=== PATIENT | female | born 1995 ===

== ENCOUNTER 2016-07-06 20:02 | Emergency (ER) | payer MEDICAID ==
[2016-07-06 20:20] VITALS: BP 117/59; PULSE 75; RESP 18; TEMP 98; O2SAT 98
[2016-07-06 20:52] LABS: RBC URINE 1 /hpf (0-3); URINE BILIRUBIN NEGATIVE (NEGATIVE); URINE BLOOD NEGATIVE (NEGATIVE); URINE COLOR Yellow (YELLOW); URINE GLUCOSE (UA) NORMAL (Normal); URINE KETONE NEGATIVE (NEGATIVE); URINE LEUKOCYTE ESTERASE NEG Leu/uL (Negative); URINE PROTEIN NEGATIVE (NEGATIVE); URINE UROBILINOGEN NORMAL mg/dL (0.2-1.0); WBC URINE < 1 /hpf (0-5)
--- NOTE | 2016-07-06 21:32 | C.PDOC ---
History Of Present Illness Patient is a 20 year old female presenting to the ER with a complaint of hematuria and dysuria x 2 weeks. [facility] Histologist Technologist exam and was screened for all STD. Pt states she was treated for BV but sx persist. Denies nausea, vomiting, diarrhea, or abdominal pain. Time Seen by Provider: 07/06/16 20:26 Chief Complaint (Nursing): Female Genitourinary History Per: Patient History/Exam Limitations: no limitations Onset/Duration Of Symptoms: Hrs Associated Symptoms: Urinary Symptoms (Hematuria, dysuria). denies: Nausea, Vomiting, Diarrhea Past Medical History Reviewed: Historical Data, Nursing Documentation, Vital Signs Vital Signs: Last Vital Signs Temp 98 F 07/06/16 20:17 Pulse 75 07/06/16 20:17 Resp 18 07/06/16 20:17 BP 117/59 L 07/06/16 20:17 Pulse Ox 98 07/06/16 21:35 - Medical History PMH: Asthma Surgical History: No Surg Hx Family History: States: Unknown Family Hx - Social History Hx Alcohol Use: No Hx Substance Use: No - Immunization History Hx Tetanus Toxoid Vaccination: No Hx Influenza Vaccination: No Hx Pneumococcal Vaccination: No Review Of Systems Gastrointestinal: Negative for: Nausea, Vomiting, Abdominal Pain, Diarrhea Genitourinary: Positive for: Dysuria, Hematuria Physical Exam - Physical Exam Appears: Well, Non-toxic Skin: Normal Color, Warm, Dry Head: Atraumatic, Normacephalic Oral Mucosa: Moist Chest: Symmetrical, No Tenderness Cardiovascular: Rhythm Regular, No Murmur Respiratory: Normal Breath Sounds, No Rales, No Rhonchi, No Wheezing Gastrointestinal/Abdominal: Soft, No Tenderness Pelvic: Other (Pt refused , 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 Disposition - Disposition Referrals: [facility] [Outside] Non [facility] Provider, [Primary Care Provider] - Disposition: HOME/ ROUTINE Disposition Time: 21:40 Condition: STABLE Additional Instructions: Please follow up with PMD Take meds as directed Return to ER if worse Prescriptions: Fluconazole [Diflucan] 150 mg PO ONCE #1 tab Instructions: Vaginitis (ED) - Clinical Impression Clinical Impression: Vaginitis - Scribe Statement The provider has reviewed the documentation as recorded by the Scribe Tony Modi All medical record entries made by the Catherineibe were at my direction and personally dictated by me. I have reviewed the chart and agree that the record accurately reflects my personal performance of the history, physical exam, medical decision making, and the department course for this patient. I have also personally directed, reviewed, and agree with the discharge instructions and disposition.
--- NOTE | 2016-07-06 21:36 | C.PDOC ---
Time Seen by Provider: 07/06/16 20:26 Chief Complaint (Nursing): Female Genitourinary Past Medical History Vital Signs: Last Vital Signs Temp 98 F 07/06/16 20:17 Pulse 75 07/06/16 20:17 Resp 18 07/06/16 20:17 BP 117/59 L 07/06/16 20:17 Pulse Ox 98 07/06/16 20:17 - Medical History PMH: Asthma - Social History Hx Alcohol Use: No Hx Substance Use: No - Immunization History Hx Tetanus Toxoid Vaccination: No Hx Influenza Vaccination: No Hx Pneumococcal Vaccination: No ED Course And Treatment O2 Sat by Pulse Oximetry: 98 Disposition Counseled Patient/Family Regarding: Diagnosis, Need For Followup, Rx Given - Disposition Referrals: Non [facility] Provider, [Primary Care Provider] - [facility] [Outside] Disposition: HOME/ ROUTINE Disposition Time: 21:36 Condition: STABLE Additional Instructions: Please follow up with PMD Take meds as directed Return to ER if worse Prescriptions: Fluconazole [Diflucan] 150 mg PO ONCE #1 tab Instructions: Vaginitis (ED) - Clinical Impression Clinical Impression: Vaginitis
== END 2016-07-06 21:46 | disposition home or self-care (01) ==
LOC: C.ER 20:02 → SUPCPDRO 20:02 → C.ER 21:46
DX: B37.3 Candidiasis of vulva and vagina (principal)

== ENCOUNTER 2016-07-11 00:57 | Emergency (ER) | payer MEDICAID, OTHER ==
[2016-07-11 01:16] VITALS: RESP 16; TEMP 98.3
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
[2016-07-11 02:54] VITALS: BP 117/60; PULSE 76
[2016-07-11 04:50] VITALS: O2SAT 99
== END 2016-07-11 02:54 | disposition home or self-care (01) ==
LOC: C.ER 00:57
DX: M54.2 Cervicalgia (principal); V89.2XXA Person injured in unspecified motor-vehicle accident, traffic, initial encounter

== ENCOUNTER 2016-08-03 19:32 | Inpatient (IN) | payer MEDICAID, OTHER ==
[2016-08-03 19:51] VITALS: RESP 20
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
[2016-08-03 20:29] LABS: BASO # 0.1 K/uL (0.0-0.2); BASO % 0.5 % (0.0-2.0); EOS # 0.2 K/uL (0.0-0.7); EOS % 1.4 % (0.0-4.0); HEMATOCRIT 34.9 % (34.0-47.0); LYMPH # 3.7 K/uL (1.0-4.3); LYMPH % 26.7 % (20.0-40.0); MEAN CELL VOLUME 83.8 fL (81.0-99.0); MEAN CORPUSCULAR HEMOGLOBIN 26.9 pg (27.0-31.0); MEAN CORPUSCULAR HGB CONC 32.1 g/dL (33.0-37.0); MEAN PLATELET VOLUME 8.7 fL (7.2-11.7); MONO # 0.7 K/uL (0.0-0.8); MONO % 5.1 % (0.0-10.0); RED CELL DISTRIBUTION WIDTH 15.5 % (11.5-14.5); WHITE BLOOD COUNT 13.9 K/uL (4.8-10.8)
[2016-08-03 20:36] LABS: RBC URINE 2 /hpf (0-3); URINE BACTERIA RARE (<OCC); URINE BILIRUBIN NEGATIVE (NEGATIVE); URINE BLOOD NEGATIVE (NEGATIVE); URINE COLOR Yellow (YELLOW); URINE GLUCOSE (UA) NORMAL (Normal); URINE KETONE NEGATIVE (NEGATIVE); URINE LEUKOCYTE ESTERASE TRACE Leu/uL (Negative); URINE PROTEIN NEGATIVE (NEGATIVE); URINE UROBILINOGEN NORMAL mg/dL (0.2-1.0); WBC URINE 6 /hpf (0-5)
[2016-08-03 20:39] LABS: CHLORIDE 102 mmol/L (98-107)
[2016-08-03 20:40] LABS: POTASSIUM 3.6 mmol/L (3.6-5.2); SODIUM 136 mmol/L (132-148)
[2016-08-03 20:42] LABS: ALB/GLOB RATIO 1.3 (1.0-2.1); AST/SGOT 14 U/L (14-36); BILIRUBIN,TOTAL 0.5 mg/dL (0.2-1.3); CARBON DIOXIDE 25 mmol/L (22-30); GFR AFRICAN-AMERICAN > 60; TOTAL PROTEIN 7.2 g/dL (6.3-8.3)
[2016-08-03 20:43] LABS: ALKALINE PHOSPHATASE 46 U/L (38-126); ALT/SGPT 11 U/L (9-52); BLOOD UREA NITROGEN 9 mg/dL (7-17); CALCIUM 8.6 mg/dl (8.6-10.4); GLUCOSE,RANDOM 79 mg/dL (65-105)
[2016-08-03] MEDS ORDERED: Sodium Chloride 0.9% 1,000 ML IV SCH (23:45)
[2016-08-03] MEDS ORDERED: Alum-Mag Hydrox-Simethicone Susp (30 mL) PO STA (23:55)
[2016-08-04] MEDS ORDERED: Piperacill/Tazo 3.375gm in Dex 3.375 GM/50 ML BAG IVPB STA ×2 (02:24→06:04)
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
[2016-08-04] MEDS ORDERED: Dextrose 5%/0.45% NS 1,000 ML IV SCH (05:00)
--- NOTE | 2016-08-04 08:50 | CP.PCM.PN ---
Subjective - Date & Time of Evaluation Date of Evaluation: 08/04/16 Time of Evaluation: 08:30 - Subjective Subjective: Hospitalist Progress Note (Patient was seen and examined at 8:30 AM 08/04/16 801B ) 21 year old female who was admitted earlier this morning by overnight Hospitalist for evaluation of abdominal pain that has been present for 1 day. It was described as intermittent, severe cramping to dull pain, felt diffusely in the abdomen. Patient reveals the following at the time of my exam: History of 3 miscarriages (1 within frist trimester and the other in 2nd trimester, she can not remember the details of the the 3rd) History of PE S/P Right Femur Fracture in December 2015 diagnosed at [facility] in [facility]. Patient stated that she was told that the PE was likely secondary to the Right Femur Fracture. She was discharged from [facility] on Warfarin and Lovenox but patient stated that she never followed up with anyone for this (she states that an unspecified outpatient doctor could not get records from [facility] fast enough and therefore she just "gave up") She does not have a PMD She does not have an ROCK SPLITTER following her for her current 7 week ROS: Abdominal pain is currently not present: will feel pressure only when doctor's are pushing down on it Nausea: Mild but NO vomiting Cough that is dry that comes and goes NO other complaints upon FULL ROS PE: HEENT: NCA, EOMI, PERRLA, NO cervical/supraclavicular/submandibular lymphadenopathy, NO pharyngeal erythema/exudate, NO thyromegaly Cardio: NS1 and NS2, NO M/R/G Respiratory: CTA B/L, NO R/R/W GI: BSx4, Soft, NO guarding/rebound tenderness, (+) Tenderness described as increased pressure when palpating all 4 quadrants, (+) Psoas Sign which she described as "tearing" pain in the RLQ when trying to lift right leg back onto bed against my resistance (please note that the patient did not appear to be distress with the manuever) Ext: Pulses are strong and equal, NO edema, Capillary Refill is 2 seconds Assessment and Plan: 1). Abdominal Pain Could this be secondary to Appendicitis? U/S Abdomen could not visualize the Appendix F/U MRI Abdomen 2). Hx of PE as per patient Please see details above F/U Protein C, Protein S, Antithrombin III, Antiphospholipid Ab, Anticardiolipin Ab, Factor V Leiden F/U ISABELLA She will need further evaluation and follow up with Hematology for this issue as an outpatient through [facility] 3). < 8 weeks F/U evaluation by Healthcare Liaison: consulted was placed due to patient not being followed by any Healthcare Liaison as well as because of prior multiple miscarriages Disposition: If the MRI Abdomen is unremarkable and patient tolerating diet after performance, then ok to discharge patient in the morning 08/05/16 with appropriate information being provided to patient for follow up with the [facility] so that they can coordinate this patient care for her and for follow up with anticoagulation lab work and with Hematology (should this work up be abnormal). William Moyer D.O. Objective - Vital Signs/Intake and Output Vital Signs (last 24 hours): Temp Pulse Resp BP Pulse Ox 98.4 F 77 20 90/55 L 96 08/04/16 08:23 08/04/16 08:23 08/04/16 08:23 08/04/16 08:23 08/04/16 08:23 - Medications Medications: Current Medications Dextrose/Sodium Chloride (Dextrose 5%/0.45% Ns 1000 Ml) 1,000 mls @ 100 mls/hr IV .Q10H [facility] Last Admin: 08/04/16 05:00 Dose: 100 mls/hr Folic Acid 1 mg/ Sodium (Chloride) 100.2 mls @ 60 mls/hr IV DAILY [facility] Pantoprazole Sodium (Protonix Inj) 40 mg IVP Q12H [facility] Last Admin: 08/04/16 05:59 Dose: 40 mg
--- NOTE | 2016-08-04 08:55 | US ---
Pelvic ultrasound History: . Comparison: None available. Technique: Real-time sonography was performed through the pelvis utilizing transabdominal and transvaginal techniques. Findings: Uterus: 10.4 x 6.0 x 7.6 centimeters. Heterogeneous echotexture. Retroverted. Cervix measures 4.3 centimeters. Intrauterine . Intrauterine gestational sac measures 2.5 centimeters corresponding to a gestational age of 7 weeks and 1 day. Yolk sac measures 3.3 millimeters. Independent Hill-rump length measures 1.3 centimeters corresponding to a gestational age of 7 weeks and 4 days. heart rate of 150 beats per minute. No free fluid in the pelvic cul-de-sac. Right ovary: 3.6 x 2.1 x 2.9 centimeters. Normal flow. Complex heterogeneous corpus luteal cyst measuring 2.2 x 1.5 x 1.9 centimeters. Simple hypoechoic cyst measuring 2.4 x 1.8 x 1.6 centimeters. Left ovary: 2.5 x 1.9 x 1.5 centimeters. Normal flow. Small amount of subchorionic hemorrhage adjacent to the gestational sac measuring 0.8 x 0.5 x 0.8 centimeters. Impression: Intrauterine corresponding to a gestational age of approximately 7 weeks and 4 days by crown-rump length of 1.3 centimeters. Small amount of subchorionic hemorrhage measuring up to 8 x 5 x 8 millimeters. heart rate of 150 beats per minute. Right ovarian corpus luteal cyst measuring 2.2 centimeters. Additional simple right ovarian cyst measuring 2.4 centimeters. Limited 1st trimester ultrasound for viability purposes only. Continued interval followup with serial ultrasound, serial HCG levels, and gynecological consultation would be helpful if clinically indicated. These findings were preliminarily reported at 11:59 p.m. on 08/03/[address] Vladimir Townsend from [facility].
--- NOTE | 2016-08-04 08:57 | US ---
Limited right lower quadrant abdominal ultrasound History: Pelvic pain. Comparison: None available. Technique: Real-time sonography was performed through the right lower quadrant of the abdomen. Findings: Appendix not well visualized. No free fluid is present. Normal bowel loops with peristalsis noted in the right lower quadrant. Impression: Appendix not well visualized. Limited evaluation. If there is persistent clinical concern for acute appendicitis, consider further evaluation with CT scan. These findings were preliminarily reported at 11:54 p.m. on 08/03/[address] Vladimir Marie from [facility].
--- NOTE | 2016-08-04 09:06 | CP.PCM.CON ---
History of Present Illness - History of Present Illness History of Present Illness: Surgery: Dr. Jung CC: Abd pain HPI: 21F 7 weeks , LMP 06/06/16 w. PMH significant for asthma, presents to ED w. abd pain starting yesterday. Pain is intermittent. Alleviated w. rest. Aggravated by food, no correlation to greasy intake. Pain is associated w. nausea and vomiting x 4, w. streaks of blood. Pt denies diarrhea. No OSMAN, + dizziness, no CP/palpitations, intermittent SOB, no cough, no vaginal bleeding or discharge, no hematuria/dysuria. PMH: Asthma, PE PSH: ORIF R femur Meds: Albuterol ALL: cranberry, egg, seafood Social: No ETOH/tobacco/drugs Fhx: non-contributory Review of Systems - Review of Systems All systems: reviewed and no additional remarkable complaints except (HPI) Past Patient History - Infectious Disease Hx of Infectious Diseases: None - Past Medical History & Family History Past Medical History?: Yes - Past Social History Smoking Status: Light Smoker < 10 Cigarettes Daily - CARDIAC Hx Cardiac Disorders: No - PULMONARY Hx Asthma: Yes Hx Pulmonary Embolism: Yes - NEUROLOGICAL Hx Neurological Disorder: No - HEENT Hx HEENT Problems: No - RENAL Hx Chronic Kidney Disease: No - ENDOCRINE/METABOLIC Hx Endocrine Disorders: No - HEMATOLOGICAL/ONCOLOGICAL Hx Blood Disorders: No - INTEGUMENTARY Hx Dermatological Problems: No - MUSCULOSKELETAL/RHEUMATOLOGICAL Hx Fractures: Yes (rt. femur) - GASTROINTESTINAL Hx Gastrointestinal Disorders: No - GENITOURINARY/GYNECOLOGICAL Hx Genitourinary Disorders: No - PSYCHIATRIC Hx Substance Use: No - SURGICAL HISTORY Hx Surgeries: Yes Hx Orthopedic Surgery: Yes (right femur evaristo) - ANESTHESIA Hx Anesthesia: Yes Hx Anesthesia Reactions: No Hx Malignant Hyperthermia: No Meds Allergies/Adverse Reactions: Allergies Allergy/AdvReac Type Severity Reaction Status Date / Time cranberry AdvReac Severe ANGIOEDEMA Verified 08/03/16 19:52 EGG AdvReac Severe ANGIOEDEMA Verified 08/03/16 19:52 seafood AdvReac Severe ANGIOEDEMA Uncoded 08/03/16 19:52 - Medications Medications: Current Medications Dextrose/Sodium Chloride (Dextrose 5%/0.45% Ns 1000 Ml) 1,000 mls @ 100 mls/hr IV .Q10H [facility] Last Admin: 08/04/16 05:00 Dose: 100 mls/hr Folic Acid 1 mg/ Sodium (Chloride) 100.2 mls @ 60 mls/hr IV DAILY [facility] Pantoprazole Sodium (Protonix Inj) 40 mg IVP Q12H [facility] Last Admin: 08/04/16 05:59 Dose: 40 mg Physical Exam - Constitutional Appears: Non-toxic, No Acute Distress - Head Exam Head Exam: ATRAUMATIC, NORMOCEPHALIC - Eye Exam Eye Exam: EOMI. absent: Scleral icterus - ENT Exam ENT Exam: Mucous Membranes Moist - Neck Exam Neck exam: Positive for: Full Rom - Respiratory Exam Respiratory Exam: NORMAL BREATHING PATTERN. absent: Accessory Muscle Use, Respiratory Distress - GI/Abdominal Exam GI & Abdominal Exam: Rebound (+Rovsing), Soft, Tenderness (RLQ). absent: Distended, Firm, Guarding, Rigid Additional comments: (-) Obturator/psoas - Extremities Exam Extremities exam: Negative for: calf tenderness, pedal edema - Neurological Exam Neurological exam: Alert, Oriented x3 Results - Vital Signs Recent Vital Signs: Last Vital Signs Temp 98.4 F 08/04/16 08:23 Pulse 77 08/04/16 08:23 Resp 20 08/04/16 08:23 BP 90/55 L 08/04/16 08:23 Pulse Ox 96 08/04/16 08:23 - Labs Result Diagrams: 08/03/16 20:24 08/03/16 20:24 Assessment & Plan - Assessment and Plan (Free Text) Assessment: 21F w. abd pain, R/O appendicitis -U/S reviewed, non-visualized appendix -will order MRI -NPO -IVF -abx -pain meds -will too attending Zemaitis PGY2
[2016-08-04] MEDS ORDERED: Piperacillin/Tazobact 3.375 GM in Sodium Chloride 100 ML IVPB SCH ×3 (09:15→19:30)
--- NOTE | 2016-08-04 11:21 | MRI ---
PROCEDURE: MRI pelvis HISTORY: r/o appendicitis, 7 weeks COMPARISON: Not available TECHNIQUE: Multi sequence, multiplanar imaging of the pelvis and lower abdomen was performed without intravenous gadolinium administration. FINDINGS: The appendix is not definitely identified. The cecum is well visualized. There is no pericecal mass, fluid collection or inflammatory change noted. There is a 2 cm cyst in the right ovary corresponding to a finding on sonographic examination of the same date. The known intrauterine gestational sac is identified. There is no evidence of ascites. The urinary bladder is unremarkable. There is no pelvic lymphadenopathy appreciated. The marrow signal of the visualized osseous structures is within normal limits. IMPRESSION: No evidence of acute appendicitis. 2 cm right ovarian cyst. Intrauterine gestational sac identified.
[2016-08-04 11:55] LABS: BASO % 0.3 % (0.0-2.0); EOS # 0.1 K/uL (0.0-0.7); EOS % 1.3 % (0.0-4.0); HEMATOCRIT 33.7 % (34.0-47.0); LYMPH # 2.4 K/uL (1.0-4.3); LYMPH % 22.1 % (20.0-40.0); MEAN CELL VOLUME 84.7 fL (81.0-99.0); MEAN CORPUSCULAR HEMOGLOBIN 27.7 pg (27.0-31.0); MEAN CORPUSCULAR HGB CONC 32.7 g/dL (33.0-37.0); MEAN PLATELET VOLUME 8.8 fL (7.2-11.7); MONO # 0.5 K/uL (0.0-0.8); MONO % 4.7 % (0.0-10.0); RED CELL DISTRIBUTION WIDTH 15.3 % (11.5-14.5); WHITE BLOOD COUNT 10.8 K/uL (4.8-10.8)
[2016-08-04 12:08] VITALS: O2SAT 99
[2016-08-04 12:11] LABS: CHLORIDE 103 mmol/L (98-107); SODIUM 135 mmol/L (132-148)
[2016-08-04 12:12] LABS: POTASSIUM 3.8 mmol/L (3.6-5.2)
[2016-08-04 12:14] LABS: ALB/GLOB RATIO 1.2 (1.0-2.1); ALKALINE PHOSPHATASE 45 U/L (38-126); AST/SGOT 12 U/L (14-36); BILIRUBIN,TOTAL 0.6 mg/dL (0.2-1.3); BLOOD UREA NITROGEN 4 mg/dL (7-17); CARBON DIOXIDE 22 mmol/L (22-30); GFR AFRICAN-AMERICAN > 60; GLUCOSE,RANDOM 73 mg/dL (65-105); TOTAL PROTEIN 5.9 g/dL (6.3-8.3)
[2016-08-04 12:15] LABS: ALT/SGPT 18 U/L (9-52); CALCIUM 8.6 mg/dl (8.6-10.4)
--- NOTE | 2016-08-04 12:19 | CP.PCM.CON ---
<Martínez Pascual - Last Filed: 08/04/16 13:54> History of Present Illness - History of Present Illness History of Present Illness: PIGMENT PUSHER Consultation Note Dr. Savage CC: Abdominal Pain x 2 days HPI: This is a 21 year old female with a PMH notable for asthma presenting for PIGMENT PUSHER evaluation at 7.4 weeks gestation of 2 days of diffuse abdominal pain. The patient reports that she may have had an allergic reaction to something that she ate. The patient reports that around the onset of her symptoms, she noted a rash about her face and chest. The rash has since resolved, but the abdominal pain has not. The patient tried tylenol for the pain without relief. The patient denies increased pain with PO intake, walking and straining. The patient reports nausea without emetic episodes. The patient denies fever, chills, headache, chest pain, SOB, cough, changes in bowel /bladder, and extremity paresthesias. OB Hx: FDLMP: 06/06/16 EGA: 7weeks and 4 days per US preformed on this admission NILES: 03/19/17 per US on this admission Last PAP: 2011- (+) for HPV STI: Chlamydia x 2 (treated with PO abx) Menarche: 9 years old Menstrual Cycle: 26 days, 5 day menstruation Last Sexual activity 1 week ago, no use of condoms for STI prevention History: : 1- spontaneous 13 weeks with D&C to follow : 2- 6lb 1oz Baby [facility] at [facility] via spontaneous vaginal delivery, full term, no complications : 3- Elective : 4- Elective : 5- spontaneous 10 weeks with D&C to follow : 6- spontaneous 5-6 weeks : 7- current 7wks 4 days PMH: Asthma Meds: Albuterol Inh as needed Surg: Right Femur ORIF 2016, D&C x 2 Allergy: Eggs (anaphylaxis), Seafood (anaphylaxis), Cranberries (reaction unknown) SOcial: Former smoker (did not smoke during any ), denies alcohol and illicit drugs Fam: Paternal: ESRD, cataracts, HTN, DM/ Maternal: DM, Breast/Skin/Cervical ( Aunts and Grandmother) Review of Systems - Review of Systems All systems: reviewed and no additional remarkable complaints except - Constitutional Constitutional: absent: Chills, Fatigue, Fever - EENT Eyes: absent: Blurred Vision, Change in Vision Ears: absent: Ear Pain, Tinnitus Nose/Mouth/Throat: absent: Nose Pain, Facial Pain, Neck Pain - Cardiovascular Cardiovascular: absent: Chest Pain, Lightheadedness, Palpitations, Syncope - Respiratory Respiratory: absent: Cough, Dyspnea, Dyspnea on Exertion - Gastrointestinal Gastrointestinal: Abdominal Pain, Cramping, Nausea. absent: Constipation, Diarrhea, Vomiting - Genitourinary Genitourinary: absent: Change in Urinary Stream, Difficulty Urinating - Musculoskeletal Musculoskeletal: absent: Arthralgias, Numbness, Stiffness, Tingling - Integumentary Integumentary: absent: Lesions, Rash, Wounds - Neurological Neurological: absent: Paresthesias, Sensory Deficit, Syncope, Tingling, Tremor, Vertigo, Weakness - Endocrine Endocrine: absent: Cold Intolorance, Heat Intolorance, Polydipsia, Polyphagia Past Patient History - Infectious Disease Hx of Infectious Diseases: None - Past Medical History & Family History Past Medical History?: Yes - Past Social History Smoking Status: Former Smoker Alcohol: None Drugs: Denies Home Situation {Lives}: With Family - CARDIAC Hx Cardiac Disorders: No - PULMONARY Hx Asthma: Yes Hx Pulmonary Embolism: Yes - NEUROLOGICAL Hx Neurological Disorder: No - HEENT Hx HEENT Problems: No - RENAL Hx Chronic Kidney Disease: No - ENDOCRINE/METABOLIC Hx Endocrine Disorders: No - HEMATOLOGICAL/ONCOLOGICAL Hx Blood Disorders: No - INTEGUMENTARY Hx Dermatological Problems: No - MUSCULOSKELETAL/RHEUMATOLOGICAL Hx Fractures: Yes (rt. femur) - GASTROINTESTINAL Hx Gastrointestinal Disorders: No - GENITOURINARY/GYNECOLOGICAL Hx Genitourinary Disorders: No - PSYCHIATRIC Hx Substance Use: No - SURGICAL HISTORY Hx Surgeries: Yes Hx Orthopedic Surgery: Yes (right femur evaristo) - ANESTHESIA Hx Anesthesia: Yes Hx Anesthesia Reactions: No Hx Malignant Hyperthermia: No Meds Allergies/Adverse Reactions: Allergies Allergy/AdvReac Type Severity Reaction Status Date / Time cranberry AdvReac Severe ANGIOEDEMA Verified 08/03/16 19:52 EGG AdvReac Severe ANGIOEDEMA Verified 08/03/16 19:52 seafood AdvReac Severe ANGIOEDEMA Uncoded 08/03/16 19:52 - Medications Medications: Current Medications Acetaminophen (Tylenol 325mg Tab) 650 mg PO Q6 PRN PRN Reason: Pain, moderate (4-7) Dextrose/Sodium Chloride (Dextrose 5%/0.45% Ns 1000 Ml) 1,000 mls @ 100 mls/hr IV .Q10H [facility] Last Admin: 08/04/16 05:00 Dose: 100 mls/hr Folic Acid 1 mg/ Sodium (Chloride) 100.2 mls @ 60 mls/hr IV DAILY [facility] Last Admin: 08/04/16 11:28 Dose: 60 mls/hr Piperacillin Sod/Tazobactam (Sod 3.375 gm/ Sodium Chloride) 100 mls @ 200 mls/ hr IVPB Q8H [facility] Ondansetron HCl (Zofran Inj) 4 mg IVP Q4 PRN PRN Reason: Nausea/Vomiting Pantoprazole Sodium (Protonix Inj) 40 mg IVP Q12H [facility] Last Admin: 08/04/16 05:59 Dose: 40 mg Physical Exam - Constitutional Appears: Well, No Acute Distress - Head Exam Head Exam: ATRAUMATIC, NORMAL INSPECTION, NORMOCEPHALIC - Eye Exam Eye Exam: EOMI, Normal appearance Pupil Exam: NORMAL ACCOMODATION - ENT Exam ENT Exam: Mucous Membranes Moist, Normal Exam. absent: Mucous Membranes Dry - Neck Exam Neck exam: Positive for: Full Rom, Normal Inspection. Negative for: Lymphadenopathy, Tenderness - Respiratory Exam Respiratory Exam: Clear to Auscultation Bilateral, NORMAL BREATHING PATTERN. absent: Rales, Rhonchi, Wheezes, Stridor - Cardiovascular Exam Cardiovascular Exam: REGULAR RHYTHM, RRR, +S1, +S2. absent: Diastolic murmur, Systolic Murmur - GI/Abdominal Exam GI & Abdominal Exam: Normal Bowel Sounds, Soft, Tenderness (mild B/L Lower Quadrants and Epigastric ). absent: Diminished Bowel Sounds, Distended, Firm, Guarding, Rebound, Rigid - Extremities Exam Extremities exam: Positive for: normal capillary refill, normal inspection, pedal pulses present - Neurological Exam Neurological exam: Alert, CN II-XII Intact, Oriented x3 - Skin Skin Exam: Dry, Intact, Normal Color, Warm Results - Vital Signs Recent Vital Signs: Last Vital Signs Temp 98.4 F 08/04/16 08:23 Pulse 77 08/04/16 08:23 Resp 20 08/04/16 08:23 BP 90/55 L 08/04/16 08:23 Pulse Ox 96 08/04/16 08:23 - Labs Result Diagrams: 08/04/16 11:51 08/04/16 11:51 Assessment & Plan (1) Abdominal pain during Assessment and Plan: The patient will require continued care and follow up with PIGMENT PUSHER service as an outpatient. At this time, no acute obstetric or gynecological intervention is planned. Prior spontaneous abortions unlikely 2/2 to antiphospholipid syndrome due to Aissatou Criteria Aissatou Criteria: Unlikely (positive if at least 1 clinical AND 1 laboratory finding are confirmed) : Clinical- No Criteria Met - Vascular Thrombosis- None - Related Morbidity- None 1.) Unexplained of a morphologically normal fetus confirmed by U/S- None 2.) One or more premature births of a morphologically normal before the 34th week of gestation 2/2 to eclampsis/severe preeclampsia/ placental insufficiency- None 3.) 3 or more consecutive spontaneous abortions before the 10th week ( with anatomic and genetic factors excluded)- None : Laboratory- Pending Lab Work 1.) Lupus Anticoagulant 2.) Anti Cardiolipin 3.) Anti [id number] Urine GC ordered vitamins ordered Work-up for antiphospholipid syndrome and coagulopathy ordered by primary team patient has negative MRI for Appendicitis nausea- zofran 4mg IV q4 prn pain control- tylenol 650mg po q6 prn abx- zosyn 3.375mg IV q8 08/03/16 OB US- Intrauterine corresponding to a gestational age of approximately 7 weeks and 4 days by crown-rump length of 1.3 centimeters. Small amount of subchorionic hemorrhage measuring up to 8 x 5 x 8 millimeters. heart rate of 150 beats per minute. Right ovarian corpus luteal cyst measuring 2.2 centimeters. Additional simple right ovarian cyst measuring 2.4 centimeters. Limited 1st trimester ultrasound for viability purposes only. Continued interval followup with serial ultrasound, serial HCG levels, and gynecological consultation would be helpful if clinically indicated. Case Discussed with Dr. Hussein Pascual PGY1 Status: Acute - Date & Time Date: 08/04/16 Time: 13:52 <Kasie Savage - Last Filed: 08/04/16 16:22> Meds - Medications Medications: Current Medications Acetaminophen (Tylenol 325mg Tab) 650 mg PO Q6 PRN PRN Reason: Pain, moderate (4-7) Last Admin: 08/04/16 15:09 Dose: 650 mg Dextrose/Sodium Chloride (Dextrose 5%/0.45% Ns 1000 Ml) 1,000 mls @ 100 mls/hr IV .Q10H [facility] Last Admin: 08/04/16 05:00 Dose: 100 mls/hr Folic Acid 1 mg/ Sodium (Chloride) 100.2 mls @ 60 mls/hr IV DAILY [facility] Last Admin: 08/04/16 11:28 Dose: 60 mls/hr Piperacillin Sod/Tazobactam (Sod 3.375 gm/ Sodium Chloride) 100 mls @ 200 mls/ hr IVPB Q8H [facility] Ondansetron HCl (Zofran Inj) 4 mg IVP Q4 PRN PRN Reason: Nausea/Vomiting Last Admin: 08/04/16 14:00 Dose: 4 mg Pantoprazole Sodium (Protonix Inj) 40 mg IVP Q12H [facility] Last Admin: 08/04/16 05:59 Dose: 40 mg Multivit/Folic Acid/Iron () 1 tab PO DAILY [facility] Results - Vital Signs Recent Vital Signs: Last Vital Signs Temp 98.4 F 08/04/16 08:23 Pulse 77 08/04/16 08:23 Resp 20 08/04/16 08:23 BP 90/55 L 08/04/16 08:23 Pulse Ox 99 08/04/16 12:08 - Labs Result Diagrams: 08/04/16 11:51 08/04/16 11:51 Labs: Laboratory Results - last 24 hr 08/04/16 08/04/16 08/04/16 11:51 11:51 11:51 WBC 10.8 RBC 3.98 Hgb 11.0 Hct 33.7 L MCV 84.7 MCH 27.7 MCHC 32.7 L RDW 15.3 H Plt Count 310 MPV 8.8 Neut % (Auto) 71.6 Lymph % (Auto) 22.1 [place] % (Auto) 4.7 Eos % (Auto) 1.3 Baso % (Auto) 0.3 Neut # 7.8 H Lymph # 2.4 [place] # 0.5 Eos # 0.1 Baso # 0.0 PT 11.6 INR 1.0 APTT 28 Sodium 135 Potassium 3.8 Chloride 103 Carbon Dioxide 22 Anion Gap 14 BUN 4 L Creatinine 0.5 L Est GFR ( Amer) > 60 Est GFR (Non-Af Amer) > 60 Random Glucose 73 Calcium 8.6 Total Bilirubin 0.6 AST 12 L ALT 18 Alkaline Phosphatase 45 Total Protein 5.9 L Albumin 3.2 L Globulin 2.7 Albumin/Globulin Ratio 1.2 Attending/Attestation - Attestation I have personally seen and examined this patient.: Yes I have fully participated in the care of the patient.: Yes I have reviewed all pertinent clinical information: Yes Notes (Text): 08/04/16 16:12 Patient was seen after Dr. Pascual's assessment utilizing the Aissatou scale re: likelihood of APS. At the time of my assessment, patient clarified her obstetric history, most noteworthy for 12/2015 - in this , patient was started on warfarin, then switched to lovenox because of the , and based on being diagnosed with "clot in my leg". Patient had a miscarriage with this ; subseqently lost her insurance, and has had no follow up re: thromboembolic phenomena. It was discussed with patient, upon discharge, it is important to obtain obstetric care so that a diagnosis can be confirmed/ reaffirmed, if applicable, and the proper consultation with High Risk clinician obtained and anticoagulant therapy be initiated, if indicated. Patient expressed an understanding and agrees. Patient is otherwise clinically stable. No obstetric intervention indicated at this time. Will sign off at this time. Thank you for the pleasure of this consultation
[2016-08-04 17:15] VITALS: BP 99/58; PULSE 69; TEMP 98.5
[2016-08-05 08:25] LABS: INR 1.1
[2016-08-05] MEDS ORDERED: Prenatal Multivit/Folic Acid/Iron Tab PO SCH (10:00)
--- NOTE | 2016-08-05 20:09 | CP.PCM.PCO ---
Physician Communication Note - Physician Communication Note Physician Communication Note: Written discharge summary in paper chart secondary to [employer] outage
[2016-08-06 08:17] LABS: CARDIOLIPIN AB (IGA) <11 APL (<=11)
== END 2016-08-05 10:45 | disposition home or self-care (01) | DRG 886 ==
LOC: C.ER 19:32 → C.5T 23:59 → C.ER 08-04 02:23
PROVIDERS: ADMIT Internal Medicine; ATTEND Internal Medicine
DX: O26.891 Other specified pregnancy related conditions, first trimester (principal); K29.70 Gastritis, unspecified, without bleeding; Z3A.01 Less than 8 weeks gestation of pregnancy

== ENCOUNTER 2016-11-02 23:38 | Emergency (ER) | payer MEDICAID ==
[2016-11-02 23:46] VITALS: BP 95/62; PULSE 93; RESP 18; TEMP 98.8; O2SAT 96
--- NOTE | 2016-11-03 00:16 | C.PDOC ---
History Of Present Illness A 21 y/o F who is 23 weeks , presents to the ER c/o periumbilical cramping since last week. Patient has prior normal US done. Denies dysuria, hematuria, fever, chills, or any other complaints. Patient wants a monitoring. Time Seen by Provider: 11/03/16 00:04 Chief Complaint (Nursing): Abdominal Pain History Per: Patient History/Exam Limitations: no limitations Onset/Duration Of Symptoms: Days Current Symptoms Are (Timing): Still Present Severity: Mild Location Of Pain/Discomfort: Periumbilical Radiation Of Pain To:: None Quality Of Discomfort: Cramping Associated Symptoms: denies: Fever, Chills Recent travel outside of the [place]: No Additional History Per: Patient Past Medical History Reviewed: Historical Data, Nursing Documentation, Vital Signs Vital Signs: Last Vital Signs Temp 98.8 F 11/02/16 23:42 Pulse 93 H 11/02/16 23:42 Resp 18 11/02/16 23:42 BP 95/62 L 11/02/16 23:42 Pulse Ox 96 11/03/16 01:08 - Medical History PMH: Asthma, Fractures (rt. femur), Pulmonary Embolism Denies: Chronic Kidney Disease Family History: States: Unknown Family Hx - Social History Hx Alcohol Use: No Hx Substance Use: No - Immunization History Hx Tetanus Toxoid Vaccination: No Hx Influenza Vaccination: No Hx Pneumococcal Vaccination: No Review Of Systems Except As Marked, All Systems Reviewed And Found Negative. Constitutional: Negative for: Fever, Chills Gastrointestinal: Positive for: Abdominal Pain (cramping) Genitourinary: Negative for: Dysuria, Hematuria Physical Exam - Physical Exam Appears: Non-toxic, No Acute Distress, Other (Petite, ) Skin: Warm, Dry Head: Atraumatic, Normacephalic Cardiovascular: Rhythm Regular Respiratory: Normal Breath Sounds, No Rales, No Rhonchi, No Wheezing Gastrointestinal/Abdominal: Soft, No Tenderness (No periumblical discomfort), No Other ((-) Morales's signs or McBurney's point) Back: Normal Inspection, No CVA Tenderness Neurological/Psych: Oriented x3, Normal Speech, Normal Cognition ED Course And Treatment - Laboratory Results Lab Interpretation: Normal (UA neg.) O2 Sat by Pulse Oximetry: 96 (RA) Pulse Ox Interpretation: Normal Medical Decision Making Medical Decision Making: Impression: A 21 y/o F who is 23 weeks , presents to the ER c/o periumbilical cramping since last week. Plans: * UA * Reassess early 23 weeks, no UTI prior normal preg US's. no emergency repeat US indicated. ok to OB for monitoring Disposition Doctor Will See Patient In The: Office Counseled Patient/Family Regarding: Studies Performed, Diagnosis - Disposition Referrals: Non [facility] Provider, [Primary Care Provider] - Disposition: HOSPITALIZED Disposition Time: 00:57 Condition: GOOD Additional Instructions: Medically Cleared for OB-ED Obs, approx 23 weeks. Urinalysis normal Instructions: Abdominal Pain in (ED) Forms: [employer] (Persian) - Clinical Impression Clinical Impression: at early stage - Scribe Statement The provider has reviewed the documentation as recorded by the Scribe Amilcar delarosa All medical record entries made by the Scribe were at my direction and personally dictated by me. I have reviewed the chart and agree that the record accurately reflects my personal performance of the history, physical exam, medical decision making, and the department course for this patient. I have also personally directed, reviewed, and agree with the discharge instructions and disposition.
[2016-11-03 00:38] LABS: RBC URINE 2 /hpf (0-3); URINE BILIRUBIN NEGATIVE (NEGATIVE); URINE BLOOD NEGATIVE (NEGATIVE); URINE COLOR Yellow (YELLOW); URINE GLUCOSE (UA) NORMAL (Normal); URINE KETONE NEGATIVE (NEGATIVE); URINE LEUKOCYTE ESTERASE NEG Leu/uL (Negative); URINE PROTEIN NEGATIVE (NEGATIVE); WBC URINE 5 /hpf (0-5)
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
== END 2016-11-03 02:25 | disposition short-term general hospital (02) ==
LOC: SUPCPDRO 23:38 → C.ER 23:38 → C.EROB 23:38
DX: O26.892 Other specified pregnancy related conditions, second trimester (principal); R10.33 Periumbilical pain; Z3A.23 23 weeks gestation of pregnancy